=== PATIENT | male | born 1950 | race Caucasian/White ===

== ENCOUNTER 2021-04-26 10:52 | Emergency (ER) | payer OTHER ==
[2021-04-26] MEDS ORDERED: MOBIC7.5 MG PO (13:34)
== END 2021-04-26 13:58 | disposition home or self-care (01) ==
LOC: FER 10:52
DX: S60.222A Contusion of left hand, initial encounter (principal); Z88.0 Allergy status to penicillin; W19.XXXA Unspecified fall, initial encounter
CPT/HCPCS: 73120; 73130